=== PATIENT | male | born 1990 | race Two or more races ===

== ENCOUNTER 2017-01-18 09:46 | Emergency (ER) | payer BC ==
[~2017-01-18 09:46] MED LIST: ANTIBX; SERTRALINE HCL25 MG PO
[2017-01-18] MEDS ORDERED: KLONOPIN0.5 M1 PO (09:58)
[2017-01-18] MEDS ORDERED: DEPRESSION MED (09:59)
[2017-01-18 10:48] LABS: BASO % 0.6 % (0-2); EOS % 1.6 % (0-7); EOSINOPHIL ABSOLUTE COUNT 0.1 tho/cmm (0.0-0.7); HCT-HEMATOCRIT 44.6 % (36.0-53.5); HGB-HEMOGLOBIN 15.3 gm/dl (13.5-17.0); LYMPH % 30.5 % (20-45); LYMPH ABSOLUTE COUNT 1.5 tho/cmm (0.8-4.5); MCH (MEAN CORPUSCULAR HGB) 28.7 pg (28.0-32.0); MCHC MEAN CORPUSCULAR HGB CONC 34.3 % (32.0-36.0); MCV (MEAN CELL VOLUME) 83.5 fl (82.0-96.0); MEAN PLATELET VOLUME 9.4 cmc (9.4-12.4); MONOCYTE ABSOLUTE COUNT 0.4 tho/cmm (0.0-1.2); NEUTROPHILS % 60.3 % (40-80); PLATELET COUNT 296 tho/cmm (150-450); RED BLOOD COUNT 5.34 mil/cmm (4.40-5.70); RED CELL DISTRIBUTION WIDTH 12.8 % (12.4-16.4)
[2017-01-18 11:03] LABS: ALKALINE PHOSPHATASE 70 U/L (33-138); ALT/SGPT 25 U/L (12-78); ANION GAP 13 mmol/L (0-20); AST/SGOT 17 U/L (10-40); BILIRUBIN,TOTAL 0.7 mg/dl (0.0-1.5); BLOOD UREA NITROGEN 11 mg/dl (6-24); CALCIUM 9.3 mg/dl (8.5-10.5); CARBON DIOXIDE-VENOUS 28 mmol/L (22-32); CHLORIDE 106 mmol/l (96-110); CREATININE 1.01 mg/dl (0.60-1.30); GLUCOSE 87 mg/dL (70-110); LIPASE 92 U/L (73-393); POTASSIUM 4.6 mmol/L (3.7-5.1); SODIUM 142 mmol/L (135-145); eGFR VALUE FOR BLACK >90 mL/Min
[2017-03-21] MEDS ORDERED: IBUPROFEN400 M1 PO (20:37)
[2017-03-21] MEDS ORDERED: CYCLOBENZAPRINE5 M1 PO (21:06)
[2017-03-21] MEDS ORDERED: NORCO 5/3251 TAB PO (21:06)
== END 2017-01-18 11:29 ==
LOC: EDMED 09:46
PROVIDERS: Nurse Practitioner Family
DX: R11.2 Nausea with vomiting, unspecified (principal); F41.9 Anxiety disorder, unspecified; F17.200 Nicotine dependence, unspecified, uncomplicated; Z79.899 Other long term (current) drug therapy
CPT/HCPCS: J2405; J7030